=== PATIENT | female | born 1985 | race Caucasian/White ===

== ENCOUNTER → 2016-10-28 | Day surgery (SDC) | payer OTHER ==
[~2016-10-28] VITALS: Ht 167.6 cm; Wt 90.7 kg
[~2016-10-28] MED LIST: AMOXIL500 MG PO; AZITHROMYCIN250 M1 PO; BUPROPION XL300 M1 PO; CLEOCIN HCL300 M1 PO; CLONAZEPAM2 M2 PO; CLONAZEPAM2 MG PO; KETOROLAC TROME10 M1 PO; KLONOPIN2 M1 PO; METHADONE H5 MG/5 ML PO; NEURONTIN100 M1 PO; PERCOCET 5-3251 EACH PO; QUETIAPINE FUMA25 M1 PO; SERTRALINE HYD100 MG PO; TYLENOL WITH C1 EACH PO; ZOLOFT100 M1 PO; viscous lidocaine PO
--- NOTE | 2016-10-28 05:50 | ED GI/GU/ABDOMINAL COMPLAINT ---
History of Present Illness General Chief Complaint: Abdominal Pain/Flank Pain Stated Complaint: RUQ ABD PAIN Source: patient Exam Limitations: no limitations Vital Signs & Intake/Output Vital Signs & Intake/Output Vital Signs Date Time Temp Pulse Resp B/P Pulse O2 O2 Flow FiO2 Ox Delivery Rate 10/28 1031 96.8 70 16 124/72 97 Room Air 10/28 1020 Room Air Room Air 10/28 0939 97.5 67 15 129/75 98 Room Air Room Air 10/28 0816 98.2 74 18 125/73 99 Room Air 10/28 0539 97 Room Air 10/28 0538 96.7 73 18 134/74 97 Room Air Allergies Coded Allergies: cephalexin (Mild, RASH 12/10/15) Reconcile Medications Azithromycin 250 MG TABLET 1 DP PO AD sinusitis 2 the first day followed by 1 for days 2-5 Bupropion HCl (Bupropion XL) 300 MG TAB.ER.24H 1 TAB PO DAILY MENTAL HEALTH ( Reported) Clindamycin HCl (Cleocin HCl) 300 MG CAPSULE 1 CAP PO TID dental infection Clonazepam 2 MG TAB 1 TAB PO TID ANXIETY (Reported) Clonazepam (Klonopin) 2 MG TABLET 1 TAB PO TID ANXIETY Clonazepam 2 MG TABLET 1 TAB PO TID ANXIETY Gabapentin (Neurontin) 100 MG CAPSULE 100 MG PO D MENTAL HEALTH (Reported) Ketorolac Tromethamine 10 MG TABLET 1 TAB PO TID PRN PAIN METHADONE HCL (Methadone HCl) 5 MG/5 ML GENEVA 54 MG PO DAILY MENTAL HEALTH ( Reported) Oxycodone HCl/Acetaminophen (Percocet 5-325 MG Tablet) 5 MG-325 MG TABLET 1 TAB PO TID PRN PAIN Oxycodone HCl/Acetaminophen (Percocet 5-325 MG Tablet) 5 MG-325 MG TABLET 1 TAB PO BID PRN pain Quetiapine Fumarate 25 MG TABLET 1 TAB PO QPM MENTAL HEALTH (Reported) SERTRALINE HCL (Sertraline Hydrochloride) 100 MG TAB 1 TAB PO DAILY MENTAL HEALTH (Reported) Sertraline HCl (Zoloft) 100 MG TABLET 1 TAB PO BID DEPRESSION Tylenol With Codeine (Tylenol With Codeine #3 Tablet) 300 MG-30 MG TABLET 1 TAB PO BIDP PRN pain [viscous lidocaine] 10 ML PO Q4HR PRN DENTAL PAIN SWISH AND SPIT Triage Note: C/O RUQ ABD PAIN ON AND OFF FOR 3 WEEKS, WORSE FOR THE LAST WEEK Triage Nurses Notes Reviewed? yes LMP (ages 10-50): unknown ? n Is pt currently ? No Onset: 3 weeks Duration: week(s):, changing over time, continues in ED, getting worse Timing: recent history Quality/Severity: aching, sharpness, severe Location: right upper quadrant Radiation: epigastric, periumbilical Activities at Onset: none Prior Abdominal Problems: none Past Sexual History: Unobtainable at this time Modifying Factors: Worsens With: eating, palpation. Associated Symptoms: abdominal pain, diarrhea, loss of appetite HPI: 3 weeks prior to admission patient complains of right upper quadrant/epigastric pain moderate to severe radiating to periumbilical area waxing and waning progressive now constant associated with loss of appetite and frequent loose watery stool. She denies fever chills chest pain cough shortness of breath headache dysuria rash bleeding. (DIANNE ESPINAL MD) Past History Travel History Traveled to [place] past 21 day No Medical History Any Pertinent Medical History? see below for history Neurological: NONE EENT: NONE Cardiovascular: NONE Respiratory: NONE Gastrointestinal: NONE Hepatic: NONE Renal: NONE Musculoskeletal: NONE Psychiatric: anxiety, depression, substance abuse, LAST USED 08/14/2008 Endocrine: NONE Blood Disorders: NONE Cancer(s): NONE UTILITY SYSTEM REPAIRER/Reproductive: NONE Surgical History Surgical History: non-contributory Psychosocial History What is your primary language French Tobacco Use: Never used Family History Hx Contributory? No (DIANNE ESPINAL MD) Review of Systems Review of Systems Constitutional: Reports: see HPI, malaise. EENTM: Reports: no symptoms. Respiratory: Reports: no symptoms. Cardiovascular: Reports: no symptoms. GI: Reports: see HPI, abdominal pain, diarrhea. Genitourinary: Reports: no symptoms. Musculoskeletal: Reports: no symptoms. Skin: Reports: no symptoms. Neurological/Psychological: Reports: no symptoms. Hematologic/Endocrine: Reports: no symptoms. Immunologic/Allergic: Reports: no symptoms. All Other Systems: Reviewed and Negative (DIANNE ESPINAL MD) Physical Exam Physical Exam General Appearance: well developed/nourished, alert, awake, anxious, moderate distress, obese Head: atraumatic, normal appearance Eyes: Bilateral: normal appearance, PERRL, EOMI, normal inspection. Ears, Nose, Throat, Mouth: hearing grossly normal, moist mucous membrane Neck: normal inspection, supple, full range of motion, normal alignment, no midline tenderness Respiratory: normal breath sounds, chest non-tender, no respiratory distress, quiet respiration, lungs clear Cardiovascular: regular rate/rhythm, normal peripheral pulses, norml femoral pulses equa Peripheral Pulses: 4+ carotid (R), 4+ carotid (L) Gastrointestinal: normal bowel sounds, soft, guarding, tenderness (right upper quadrant) Back: normal inspection, normal range of motion, no vertebral tenderness Extremities: normal range of motion, no ligament instability Neurologic/Psych: no motor/sensory deficits, awake, alert, oriented x 3, normal gait, normal mood/affect, 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 No Severe Sepsis Present: No Septic Shock Present: No (KYLIE REINA,DIANNE) Progress Differential Diagnosis: biliary colic, cholecystitis, gastritis, pancreatitis, PUD/GERD Plan of Care: Orders Procedure Date/time Status Place in observation 10/28 1037 Active LIPASE 10/28 0548 Complete HUMAN BETA HCG SCREEN 10/28 0548 Complete COMPREHENSIVE METABOLIC PANEL 10/28 0548 Complete CBC WITHOUT DIFFERENTIAL 10/28 0548 Complete Laboratory Tests 10/28/16 0607: Anion Gap 10, Estimated GFR > 60, BUN/Creatinine Ratio 15.0, Glucose 101 H, Calcium 9.1, Total Bilirubin 0.2, AST 15, ALT 31, Alkaline Phosphatase 81, Total Protein 6.8, Albumin 3.7, Globulin 3.1, Albumin/Globulin Ratio 1.2, Lipase 85, Total Beta HCG NEGATIVE, CBC w Diff NO MAN DIFF REQ, RBC 4.39, MCV 80.3 L, MCH 25.6 L, RDW 17.3 H, MPV 8.5, Gran % 63.7, Lymphocytes % 28.1, Monocytes % 5.2, Eosinophils % 2.1, Basophils % 0.9, Absolute Granulocytes 5.3, Absolute Lymphocytes 2.3, Absolute Monocytes 0.4, Absolute Eosinophils 0.2, Absolute Basophils 0.1, PUBS MCHC 31.9 L Initial ED EKG: none Hand-Off Endorsed To: SOHAN REINA,EMORY Seay Endorsed Time: 0700 Pending: ultrasound (KYLIE REINA,DIANNE) Diagnostic Imaging: Viewed by Me: Ultrasound. Discussed w/RAD: Ultrasound. Radiology Impression: PATIENT: PINA LEIVA PRESENT AGE: 31 PATIENT ACCOUNT NO: [id number] : 85 LOCATION: [facility] ORDERING PHYSICIAN: DIANNE ESPINAL MD SERVICE DATE: 10/28/16 EXAM TYPE: US - US-LIMITED ABDOMEN EXAMINATION: US ABDOMEN LIMITED CLINICAL INFORMATION: Right upper quadrant pain and tenderness.. COMPARISON: None TECHNIQUE: Real-time imaging of the right upper quadrant abdominal viscera. FINDINGS: PANCREAS: The pancreatic head, neck, and proximal body are normal in size and contour. There is no pancreatic ductal distention or retroperitoneal effusion. The remainder of the pancreas is obscured by bowel gas and not completely imaged. LIVER: The liver is within limits of normal size and smooth in contour. The hepatic parenchyma is normal in echogenicity and there is no free visible mass or intrahepatic biliary ductal dilatation. Doppler shows portal flow towards the liver. GALLBLADDER: The gallbladder is abnormal. There are at least 2 large stones measuring 2.5 and 1.9 cm. There is likely sludge between the gallstones. Gallbladder wall is thickened measuring between 3 and 7 mm with subtle subserosal edema. There is no visible pericholecystic fluid or gallbladder dilatation. Patient is tender in the region of the gallbladder. COMMON BILE DUCT : Normal in caliber measuring 0.4 cm in diameter. No visible common duct stone or sludge. RIGHT KIDNEY: Normal. No hydronephrosis. No renal calculi or focal parenchymal lesions. The kidney measures 11.8 cm in maximum dimension. FREE FLUID: None. IMPRESSION: 1. Cholelithiasis with gallbladder wall thickening, subserosal edema, and tenderness in the gallbladder fossa. Findings may be associated with acute and/or chronic cholecystitis. 2. No intrahepatic or extrahepatic biliary ductal dilatation. Common duct normal caliber. 3. No right hydronephrosis. DICTATED BY: MARIA INES HUANG MD DATE/TIME DICTATED:10/28/16853 ENTRY SPECIALIST:TRINI DATE/TIME TRANSCRIBED:10/28/16853 CONFIDENTIAL, DO NOT COPY WITHOUT APPROPRIATE AUTHORIZATION. <Electronically signed in Other Vendor System> SIGNED BY: MARIA INES HUANG MD 10/28/16 0907 (SOHAN REINA,EMORY Seay) Departure Departure Disposition: STILL A PATIENT Condition: Stable Clinical Impression Primary Impression: Biliary colic Secondary Impressions: Abdominal pain Qualifiers: Abdominal location: right upper quadrant Qualified Code: R10.11 - Right upper quadrant pain Diarrhea Qualifiers: Diarrhea type: unspecified type Qualified Code: R19.7 - Diarrhea, unspecified Referrals: YESSI HANNAH MD (PCP/Family) Departure Forms: Customer Survey General Discharge Information (KYLIE REINA,DIANNE) Observation Note Spoke With: TOBIAS REINA,LUZMA Moncada Physician Advisor Notified: EMORY PARRY MD Place Patient In: Non-ED OBS Care Area Rationale for Observation: My rational for observation is as follows [LAP GREGORY, IV ABX, IV PAIN CONTROL]. OR/GI Note Spoke With: TOBIAS REINA,LUZMA Moncada ED Treatment Decision: PINA LEIVA requires urgent operative management or an emergent procedure that cannot be performed in the Emergency Room setting. Transport To: [facility] (EMORY PARRY MD)
[2016-10-28 06:14] LABS: ABSOLUTE BASOPHIL COUNT 0.1 /CUMM (0.0-0.2); ABSOLUTE EOSINOPHIL COUNT 0.2 /CUMM (0.0-0.7); ABSOLUTE GRANULOCYTE CT 5.3 /CUMM (1.4-6.5); ABSOLUTE LYMPH COUNT 2.3 /CUMM (1.2-3.4); ABSOLUTE MONOCYTE COUNT 0.4 /CUMM (0.10-0.60); BASOPHIL % 0.9 % (0.0-2.0); EOSINOPHIL % 2.1 % (0-5); GRANULOCYTE % 63.7 % (42.2-75.2); HEMATOCRIT 35.3 % (37-47); MEAN CORPUSCULAR HGB 25.6 PG (27.0-31.0); MEAN CORPUSCULAR HGB CONC 31.9 G/DL (33.0-37.0); MEAN CORPUSCULAR VOLUME 80.3 FL (81.0-99.0); MEAN PLATELET VOLUME 8.5 FL (7.4-10.4); PLATELET COUNT 284 /CUMM (130-400); RBC DISTRIBUTION WIDTH 17.3 % (11.5-14.5); RED BLOOD CELL CT 4.39 /CUMM (4.20-5.40); WHITE BLOOD CELL COUNT 8.3 /CUMM (4.8-10.8)
--- NOTE | 2016-10-28 09:07 | ULTRASOUND REPORT ---
EXAMINATION: US ABDOMEN LIMITED CLINICAL INFORMATION: Right upper quadrant pain and tenderness.. COMPARISON: None TECHNIQUE: Real-time imaging of the right upper quadrant abdominal viscera. FINDINGS: PANCREAS: The pancreatic head, neck, and proximal body are normal in size and contour. There is no pancreatic ductal distention or retroperitoneal effusion. The remainder of the pancreas is obscured by bowel gas and not completely imaged. LIVER: The liver is within limits of normal size and smooth in contour. The hepatic parenchyma is normal in echogenicity and there is no free visible mass or intrahepatic biliary ductal dilatation. Doppler shows portal flow towards the liver. GALLBLADDER: The gallbladder is abnormal. There are at least 2 large stones measuring 2.5 and 1.9 cm. There is likely sludge between the gallstones. Gallbladder wall is thickened measuring between 3 and 7 mm with subtle subserosal edema. There is no visible pericholecystic fluid or gallbladder dilatation. Patient is tender in the region of the gallbladder. COMMON BILE DUCT: Normal in caliber measuring 0.4 cm in diameter. No visible common duct stone or sludge. RIGHT KIDNEY: Normal. No hydronephrosis. No renal calculi or focal parenchymal lesions. The kidney measures 11.8 cm in maximum dimension. FREE FLUID: None. IMPRESSION: 1. Cholelithiasis with gallbladder wall thickening, subserosal edema, and tenderness in the gallbladder fossa. Findings may be associated with acute and/or chronic cholecystitis. 2. No intrahepatic or extrahepatic biliary ductal dilatation. Common duct normal caliber. 3. No right hydronephrosis.
[2016-10-28 11:53] VITALS: BP 132/75
--- NOTE | 2016-10-28 12:29 | History & Physical Pre-Op ---
General Information and HPI History of Present Illness: CC: abdominal pain HPI: 31-year-old nondiabetic smoker with a remote history of heroin and methadone not recently who came to the last night because of severe right upper quadrant pain no nausea and vomiting no fevers no sweats but about 3 weeks ago when this started, these intermittent episodes not as severe as last night, she did have some nausea and vomiting initially, not worse with activity no relation to foods (ie. fried or cheese), but lately she's been afraid to eat "anything" she's had some diarrhea but no fevers no particular darkening of urine (ie iced tea) or lightening / loose stools (llanso), her mother has gallstones. Otherwise no changes bowel habits, weight or appetite. I've reviewed the [facility]. No history of GERD, PUD, bleeding problems, heart disease or issues with anesthesia. Allergies/Medications Allergies: Coded Allergies: cephalexin (Mild, RASH 12/10/15) Home Med list Azithromycin 250 MG TABLET 1 DP PO AD sinusitis 2 the first day followed by 1 for days 2-5 Bupropion HCl (Bupropion XL) 300 MG TAB.ER.24H 1 TAB PO DAILY MENTAL HEALTH ( Reported) Clindamycin HCl (Cleocin HCl) 300 MG CAPSULE 1 CAP PO TID dental infection Clonazepam 2 MG TAB 1 TAB PO TID ANXIETY (Reported) Clonazepam (Klonopin) 2 MG TABLET 1 TAB PO TID ANXIETY Clonazepam 2 MG TABLET 1 TAB PO TID ANXIETY Gabapentin (Neurontin) 100 MG CAPSULE 100 MG PO D MENTAL HEALTH (Reported) Ketorolac Tromethamine 10 MG TABLET 1 TAB PO TID PRN PAIN METHADONE HCL (Methadone HCl) 5 MG/5 ML GENEVA 54 MG PO DAILY MENTAL HEALTH ( Reported) Oxycodone HCl/Acetaminophen (Percocet 5-325 MG Tablet) 5 MG-325 MG TABLET 1 TAB PO TID PRN PAIN Oxycodone HCl/Acetaminophen (Percocet 5-325 MG Tablet) 5 MG-325 MG TABLET 1 TAB PO BID PRN pain Quetiapine Fumarate 25 MG TABLET 1 TAB PO QPM MENTAL HEALTH (Reported) SERTRALINE HCL (Sertraline Hydrochloride) 100 MG TAB 1 TAB PO DAILY MENTAL HEALTH (Reported) Sertraline HCl (Zoloft) 100 MG TABLET 1 TAB PO BID DEPRESSION Tylenol With Codeine (Tylenol With Codeine #3 Tablet) 300 MG-30 MG TABLET 1 TAB PO BIDP PRN pain [viscous lidocaine] 10 ML PO Q4HR PRN DENTAL PAIN SWISH AND SPIT Past History Medical History Neurological: NONE EENT: NONE Cardiovascular: NONE Respiratory: NONE Gastrointestinal: NONE Hepatic: NONE Renal: NONE Musculoskeletal: NONE Psychiatric: anxiety, depression, substance abuse, LAST USED 08/14/2008 Endocrine: NONE Blood Disorders: NONE 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 Surgical History Pertinent Surgical History: non-contributory Review of Systems Review of Systems: Constitutional: No fever, sweats or weight loss ENMT: No sore throat Cardiovascular: No chest pain, palpitations or leg swelling Respiratory: No shortness of breath, cough, or sputum or dyspnea on exertion GI: No GERD or bleeding per rectum : No dysuria or hematuria Musculoskeletal: No new muscle weakness, bone or joint pain Skin / Breast: No jaundice, rashes or itching Psychiatric: There is history of drug abuse in the past, and she does have some depression and anxiety Hematologic / lymphatic system: No problems with excessive bleeding, bruising, or blood clots Exam & Diagnostic Data Last 24 Hrs of Vital Signs/I&O I reviewed Vital Signs Date Time Temp Pulse Resp B/P Pulse O2 O2 Flow FiO2 Ox Delivery Rate 10/28 1153 97.6 87 15 132/75 100 Room Air Room Air 10/28 1031 96.8 70 16 124/72 97 Room Air 10/28 1020 Room Air Room Air 10/28 0939 97.5 67 15 129/75 98 Room Air Room Air 10/28 0816 98.2 74 18 125/73 99 Room Air 10/28 0539 97 Room Air 10/28 0538 96.7 73 18 134/74 97 Room Air I reviewed Intake & Output 10/28 1600 10/28 0800 10/28 0000 Intake Total Output Total Balance Patient 200 lb Weight Physical Exam: Constitutional: pleasant, no acute distress, conversant Eyes: sclera anicteric ENMT: ears and nose atraumatic, moist mucous membranes, good dentition, no lip lesions Neck: Supple, trachea is midline, no cervical or supraclavicular adenopathy and no palpable thyromegaly Cardiovascular: S1, S2, no murmurs, no peripheral edema Respiratory: clear to auscultation with normal respiratory effort and no intercostal retractions GI: abdomen soft, mildly tender right upper quadrant, nondistended, no palpable hepatosplenomegaly Extremities / lymphatics: symmetrically warm, free range of motion no peripheral edema, no cervical, supraclavicular, axillary, or inguinal adenopathy Musculoskeletal: Normal gait and station, no digital cyanosis, good muscle strength and tone no atrophy, motor grossly 5 out of 5 throughout Skin: no jaundice, no rashes warm, nondiaphoretic, no areas of erythema or induration Psychiatric: mood and affect are appropriate and alert and oriented to person place and time Last 24 Hrs of Labs/Mike: I reviewed Laboratory Tests 10/28/16 0607: Anion Gap 10, Estimated GFR > 60, BUN/Creatinine Ratio 15.0, Glucose 101 H, Calcium 9.1, Total Bilirubin 0.2, AST 15, ALT 31, Alkaline Phosphatase 81, Total Protein 6.8, Albumin 3.7, Globulin 3.1, Albumin/Globulin Ratio 1.2, Lipase 85, Total Beta HCG NEGATIVE, CBC w Diff NO MAN DIFF REQ, RBC 4.39, MCV 80.3 L, MCH 25.6 L, RDW 17.3 H, MPV 8.5, Gran % 63.7, Lymphocytes % 28.1, Monocytes % 5.2, Eosinophils % 2.1, Basophils % 0.9, Absolute Granulocytes 5.3, Absolute Lymphocytes 2.3, Absolute Monocytes 0.4, Absolute Eosinophils 0.2, Absolute Basophils 0.1, PUBS MCHC 31.9 L Assessment/Plan Assessment/Plan: Studies: I reviewed today's ultrasound on PACS myself which shows some large stones and this a collapsed gallbladder with some wall thickening but no pericholecystic fluid My impression is symptomatic gallstones. The story is somewhat typical. The current standard of care is removal of the gallbladder laparoscopically, preferably not emergently. Once they become symptomatic, gallstones can lead to complications such as cholecystitis, pancreatitis and cholangitis and rarely others, her story does not have hints of this but she may have acute cholecystitis. More workup is not needed but we will get a preoperative labs including LFTs. I explained the nature and possibility of retained stones, and rarely, persistent postoperative diarrhea. I richard a diagram illustrating how the stones cause problems and how the anatomy and inflammation can make the surgery more difficult, sometimes requiring an open procedure, and rarely to repair a bile duct injury leading to significant morbidity and even mortality. This in our practice is exceedingly rare, but other more common risks were also discussed such as infection, injury to other surrounding structures such as bowel and blood vessels. We also discussed the potential risks, benefits and alternatives to the procedure and surgery in general, issues that included but were not limited to, anesthetic risks hemorrhage requiring transfusion, the risk of transfusion itself, infection, heart attack, stroke, . I explained the importance of stopping smoking as it pertains to surgery, especially with general anesthesia and healing. As Ranked By This Provider Problem List: 1. Cholecystitis
--- NOTE | 2016-10-28 15:30 | Operative Report ---
Operative/Inv Procedure Report Surgery Date: 10/28/16 Name of Procedure: laparosc cholecystectomy Pre-Operative Diagnosis: cholecystitis Post-Operative Diagnosis: same Estimated Blood Loss: scant Surgeon/Medical Diagnostic Radiographer: Anju FONTAINE Anesthesia: general endotracheal tube Operative/Procedure Note Note: Patient was positioned supine. After successful induction of general anesthesia, the patient's abdomen was clipped, prepped and draped in the usual sterile fashion. Local anesthetic was injected at the top of the umbilicus and then a curved horizontal incision little over a centimeter was made there with a 15 blade and then deepened to the midline fascia which was incised vertically a little over a centimeter. Both sides were secured with 0 Vicryl stay sutures and then the thin peritoneal layer was entered, 10 mm Villalpando trocar inserted obliquely to the right, and the gas was turned on to 15 mm. After insufflation and repositioning to reverse Trendelenburg, 3 more dissecting 5 mm trochars were placed in the right subcostal area, first lateral, then mid-subcostal, then subxiphoid. The gallbladder fundus was grasped from the lateral port and retracted up over the edge of the liver and then we dissected out the area of the triangle of Calot while retracting the infundibulum caudally / laterally. This area was edematous. First the cystic duct was identified, isolated at the neck, clipped 3 times, divided after the second clip and then in similar fashion the cystic artery was identified medially, dissected and divided. Then the gallbladder was from the liver bed using cautery then lowered into an Endobag and removed through the umbilical incision. The instruments and then the trochars were removed letting the gas escape. The fascial incision was closed with a figure 8 Vicryl then all 4 skin incisions were closed with interrupted subcuticular 4-0 Monocryl, followed by Mastisol Steri-Strips and Bandaids. Estimated blood loss was minimal, lap and sponge counts were correct, wound expectancy was clean-contaminated, IV fluids crystalloid, complications none, patient tolerated the procedure well and was returned to the recovery room in satisfactory condition.
== END ==
LOC: ERH 05:32 → STS 12:58 → ERH 12:58
PROVIDERS: Emergency Medicine
DX: K80.10 Calculus of gallbladder with chronic cholecystitis without obstruction (principal); F17.200 Nicotine dependence, unspecified, uncomplicated; Z79.899 Other long term (current) drug therapy
CPT/HCPCS: 88304; 88305; 96374; 96375; 96376; C9399; J0131; J1170; J1885; J2175; J2250; J3010

== ENCOUNTER 2016-11-10 08:35 | Emergency (ER) | payer OTHER ==
--- NOTE | 2016-11-10 08:54 | ED CRITICAL CARE ---
History of Present Illness General Chief Complaint: Cardiopulmonary Resuscitation Stated Complaint: BIBA, CPR Source: family, EMS Exam Limitations: clinical condition Vital Signs & Intake/Output Vital Signs & Intake/Output SEE TRIAGE Allergies Coded Allergies: cephalexin (Mild, RASH 12/10/15) Reconcile Medications Azithromycin 250 MG TABLET 1 DP PO AD sinusitis 2 the first day followed by 1 for days 2-5 Bupropion HCl (Bupropion XL) 300 MG TAB.ER.24H 1 TAB PO DAILY MENTAL HEALTH ( Reported) Clindamycin HCl (Cleocin HCl) 300 MG CAPSULE 1 CAP PO TID dental infection Clonazepam 2 MG TAB 1 TAB PO TID ANXIETY (Reported) Clonazepam (Klonopin) 2 MG TABLET 1 TAB PO TID ANXIETY Clonazepam 2 MG TABLET 1 TAB PO TID ANXIETY Gabapentin (Neurontin) 100 MG CAPSULE 100 MG PO D MENTAL HEALTH (Reported) Ketorolac Tromethamine 10 MG TABLET 1 TAB PO TID PRN PAIN METHADONE HCL (Methadone HCl) 5 MG/5 ML GENEVA 54 MG PO DAILY MENTAL HEALTH ( Reported) Oxycodone HCl/Acetaminophen (Percocet 5-325 MG Tablet) 5 MG-325 MG TABLET 1 TAB PO TID PRN PAIN Oxycodone HCl/Acetaminophen (Percocet 5-325 MG Tablet) 5 MG-325 MG TABLET 1 TAB PO BID PRN pain Quetiapine Fumarate 25 MG TABLET 1 TAB PO QPM MENTAL HEALTH (Reported) SERTRALINE HCL (Sertraline Hydrochloride) 100 MG TAB 1 TAB PO DAILY MENTAL HEALTH (Reported) Sertraline HCl (Zoloft) 100 MG TABLET 1 TAB PO BID DEPRESSION Tylenol With Codeine (Tylenol With Codeine #3 Tablet) 300 MG-30 MG TABLET 1 TAB PO BIDP PRN pain [viscous lidocaine] 10 ML PO Q4HR PRN DENTAL PAIN SWISH AND SPIT Triage Nurses Notes Reviewed? yes Onset: Abrupt Duration: minute(s): (30) Timing: single episode today Injury Environment: home Severity: severe HPI: 31 year old female [place] from home for cardiac arrest. Patient found unresponsive in bed by her mother with drug paraphanalia at bedside. Found pulseless, apneic. Given IO epi, intranasal narcan, fluids, BVM in the field without ROSC. Persistent asystole in field. Last seen normal 7 am. Past History Travel History Traveled to [place] past 21 day No Medical History Any Pertinent Medical History? see below for history Neurological: NONE EENT: NONE Cardiovascular: NONE Respiratory: NONE Gastrointestinal: NONE Hepatic: NONE Renal: NONE Musculoskeletal: NONE Psychiatric: anxiety, depression, substance abuse, LAST USED 08/14/2008 Endocrine: NONE Blood Disorders: NONE Cancer(s): NONE [employer] COT[employer] GIN/Reproductive: NONE Surgical History Surgical History: non-contributory Psychosocial History What is your primary language Congolese Illicit Drug Use: H/O OPIATE ABUSE Family History Hx Contributory? No Review of Systems Review of Systems Constitutional: Reports: see HPI (UNABLE TO OBTAIN). Physical Exam Physical Exam General Appearance: well developed/nourished, severe distress, CYANOTIC Head: atraumatic Eyes: Bilateral: other (4MM FIXED BILATERAL). Neck: supple Respiratory: B/L AIR ENTRY WITH BVM Cardiovascular: NO HEART SOUNDS Peripheral Pulses: 2+ carotid (R), 2+ carotid (L) Gastrointestinal: soft, non-tender Extremities: TRACK MALDONADO LEFT ARM, LEFT LEG IO Neurologic/Psych: UNRESPONSIVE Skin: cyanosis Core Measures ACS in differential dx? No CVA/TIA Diagnosis: No Severe Sepsis Present: No Septic Shock Present: No Progress Differential Diagnoses I considered the following diagnoses in my evaluation of the patient: [CARDIAC ARREST, RESPIRATORY ARREST, HEROIN OVERDOSE] Plan of Care: SEE CODE RESUSSCITATION REPORT PATIENT PRONOUNCED 8:51 AM. ME CONTACTED. Family informed with leadite heater at bedside. Initial ED EKG: none Rhythm Strip: ASYSTOLE Departure Departure Time of Disposition: 934 Disposition: Condition: Stable Clinical Impression Primary Impression: Cardiac arrest Referrals: YESSI HANNAH MD (PCP/Family) Departure Forms: General Discharge Information Critical Care Note Critical Care Note Critical Care Time: 30-74 min (INCLUDING DOCUMENTATION)
== END 2016-11-10 08:51 | disposition expired ==
LOC: ERH 08:35
DX: I46.9 Cardiac arrest, cause unspecified (principal)
CPT/HCPCS: 1342; J2310